=== PATIENT | female | born 1975 | race Caucasian/White ===

== ENCOUNTER → 2022-11-21 | Outpatient (CLI) | payer BC ==
[~2022-11-21] MED LIST: E-Z-GAS II EFFERVESCENT PACKET (SODIUM BICARB./CITRIC ACID/SIMETHICONE) As Ordered ONE; E-Z-HD 98% w/w 340GM SUSP BTL As Ordered ONE; E-Z-PAQUE 96% w/w SUSP 176GM BTL As Ordered ONE
== END ==
LOC: M RAD 09:57
PROVIDERS: ATTEND Surgery
DX: K21.9 Gastro-esophageal reflux disease without esophagitis (principal)

== ENCOUNTER → 2023-03-18 | Outpatient (CLI) | payer BC | LOC: M SOG 07:57 | PROVIDERS: ATTEND Physician Assistant | DX: M25.561 Pain in right knee (principal); M25.562 Pain in left knee ==

== ENCOUNTER → 2023-05-29 | Outpatient (CLI) | payer OTHER, BC | LOC: M PLAIMG 06:36 | PROVIDERS: ATTEND Physician Assistant | DX: Z04.2 Encounter for examination and observation following work accident (principal); M67.51 Plica syndrome, right knee; M22.41 Chondromalacia patellae, right knee; M67.52 Plica syndrome, left knee; M22.42 Chondromalacia patellae, left knee; S83.242A Other tear of medial meniscus, current injury, left knee, initial encounter; Y93.9 Activity, unspecified; Y92.9 Unspecified place or not applicable ==

== ENCOUNTER → 2024-04-17 | Outpatient (CLI) | payer OTHER ==
[2024-04-17 11:06] LABS: BLOOD UREA NITROGEN 6 MG/DL (9-23); CALCIUM LEVEL 9.3 MG/DL (8.5-10.1); CARBON DIOXIDE LEVEL 29 MMOL/L (20-31); CHLORIDE LEVEL 107 MMOL/L (98-107); CREATININE FOR GFR 0.66 MG/DL (0.55-1.30); GLOMERULAR FILTRATION RATE > 60.0 (>58); GLUCOSE, FASTING 88 MG/DL (60-100); POTASSIUM SERUM 4.3 MMOL/L (3.5-5.1); SODIUM LEVEL 143 MMOL/L (136-145)
== END ==
LOC: M LAB 10:06
PROVIDERS: ATTEND Licensed Practical Nurse
DX: Z01.818 Encounter for other preprocedural examination (principal)